=== PATIENT | female | born 1985 | race Two or more races ===

== ENCOUNTER 2022-05-12 23:31 | Emergency (ER) | payer OTHER ==
[~2022-05-12] VITALS: Ht 182.9 cm; Wt 145.1 kg
== END 2022-05-13 03:23 | disposition home or self-care (01) ==
LOC: ER 23:31
DX: B34.9 Viral infection, unspecified (principal); J06.9 Acute upper respiratory infection, unspecified; R53.81 Other malaise; R50.9 Fever, unspecified; R05.9 Cough, unspecified; Z20.822 Contact with and (suspected) exposure to COVID-19